=== PATIENT | male | born 1970 | race Caucasian/White ===

== ENCOUNTER → 2017-12-26 12:47 | Outpatient (CLI) | payer OTHER, SELFPAY ==
--- NOTE | 2017-12-26 12:50 | DI.RAD.S_ITS ---
PROCEDURE: XR CERVICAL SPINE 4V OR 5V INDICATIONS: eval TECHNIQUE: 6 views of the cervical spine acquired. COMPARISON: [facility], CT, CT NECK SOFT TISSUE W CON, 09/12/2014, 13:27. FINDINGS: Bones: No fractures or dislocations to the C6 level. There is straightening of cervical curvature. Mild degenerative disc disease is present at C5-C6. Oblique images demonstrate no bony foraminal stenoses. Soft tissues: No prevertebral soft tissue swelling. IMPRESSION: Mild degenerative disc disease and straightening of cervical curvature. Dictated by: Amol Roman M.D. on 12/26/2017 at 15:13 Approved by: Amol Roman M.D. on 12/26/2017 at 15:15
== END ==
PROVIDERS: PCP Family Medicine; Visit Provider Physical Medicine & Rehabilitation
DX: M50.322 Other cervical disc degeneration at C5-C6 level (principal)
CPT/HCPCS: 72050

== ENCOUNTER 2018-01-27 14:48 | Outpatient (CLI) | payer OTHER, SELFPAY ==
[2018-01-27] VITALS (7 sets, daily range): BP systolic 109–139; BP diastolic 78–90; PULSE 55–66; RESP 16–26; TEMP 36.6; O2SAT 95–100
--- NOTE | 2018-01-27 14:49 | DI.RAD.S_ITS ---
PROCEDURE: PAIN C/T INTERLAMINAR INJECT INDICATIONS: RADICULOPATHY FINDINGS: Fluoroscopic spot filming was performed to verify placement of spinal needles at the C6-C7 level(s), as labeled on the films. Appropriate location(s) of the needle tip(s) was confirmed by injection of iodinated contrast. Dictated by: Carlito Beanvidez M.D. on 01/27/2018 at 16:36 Approved by: Carlito Benavidez M.D. on 01/27/2018 at 16:37
--- NOTE | 2018-01-27 15:14 | PM.PROC.1 ---
Procedures Date/Time Date of procedure: 01/27/18 Time of procedure: 15:14 General Procedure description: PREOP DIAGNOSIS 1. CERVICAL STENOSIS, 2. CERVICAL HNP WITH UPPER EXTREMITY RADICULAR FEATURES, POST OP DIAGNOSIS 1. CERVICAL STENOSIS, 2. CERVICAL HNP WITH UPPER EXTREMITY RADICULAR FEATURES, PROCEDURES 1. FLUORSCOPICALLY GUIDED CONTRAST CONTROLLED INTERLAMINAR EPIDURAL STEROID INJECTION - C6/7 TL TRACI PHYSICIAN: DO CHANO Negro referred by Dr. Box for treatment of Cervical HNP with Upper Extremity Paresthesias. FINDINGS Cervical Stenosis due to disc deterioration and nerve root irritation and nerve root irritation DESCRIPTION OF PROCEDURE Fluoroscopically guided, contrast-controlled C6/7 translaminar epidural steroid injection with conscious sedation. Following denial of allergy and review of potential side effects and complications, including, but not necessarily limited to, infection, allergic reaction, local tissue breakdown, temporary as well as permanent nerve injury, stroke, paralysis, and possible , the patient indicated that patient understood and agreed to proceed. An informed consent document was signed by the patient, witnessed by a nurse, and placed in the patient's chart. Additionally, other treatment options including modalities, medications, and physical therapy were reviewed with the patient. After review of previous anaesthesic history and IV conscious sedation the patient was deemed safe to proceed with todays procedure with IV conscious sedation as ASA class II designation. Safety time-out was performed to confirm patient ID, procedure to be performed and site of procedure. IV sedation was accomplished with a combination of 5mg of Versed administered by the RN after DO order, titrated to patient comfort during the course of the procedure while the patient remained responsive to all verbal commands. In the prone position, following sterile prep and drape of the cervical region, the C6/7 translaminar space was identified fluoroscopically. The skin was anesthetized via a 25-gauge 1.5-inch needle with 1% lidocaine solution. At this point, a 25-gauge, 2.5-inch short bevel spinal needle was atraumatically introduced and advanced under fluoroscopic guidance into epidural space at the C6/7 translaminar space. Depth was confirmed on lateral view. Radiological data, including multiple fluoroscopic views of the cervical spine, reveal a spinal needle at the C6/7 translaminar space. Lateral views then show placement of the needle in the epidural space. Subsequent views show contrast material flowing superiorly and inferiorly in the epidural space. DSA fluoroscopy with live contrast injection, once again, confirmed no vascular or intrathecal uptake. At this point, using loss of resistance technique with saline and air, the epidural space was entered. Following negative aspiration, injection of approximately 1.5 cc of Isovue-200 with live fluoroscopy in the AP view confirmed epidural flow in the epidural space without vascular or intrathecal uptake observed. Subsequently, a test dose of 1 cc of 1% lidocaine solution was injected and patient was observed for two minutes without signs or symptoms of complications, including abdominal pain, shortness of breath, bilateral upper or lower extremity weakness, nausea and vomiting, prior to steroid injection. At this point, 3 cc or 30 mg of dexamethasone was then injected without incident. The patient tolerated the procedure well without signs or symptoms of complications prior to being transferred to the recovery area for further monitoring, The patient was then transferred to the recovery area where they were observed for an appropriate period of time after the injection. The patient reported a VAS score of 6 prior to the procedure and a post-procedure VAS of 0. Total Fluoroscopy Time: 37.0 seconds Total Conscious Time: 24min POST OP INSTRUCTIONS The patient was provided a Pain Log to continue to record their response to the target-specific procedure prior to follow-up visit with the referring provider. Additionally, specific post-injection care instructions and a contact number to our office were provided if concerns arise regarding possible complications associated with the procedure are suspected. Estuardo Lubin, Complications: none
[2018-01-27] MEDS: MIDAZOLAM 5 MG/5 ML VIAL IV (15:18)
--- NOTE | 2018-01-27 15:33 | PC.NURSE ---
pt tolerated procedure well. alert and able to get off table with one person stand by assist. Transferred to pre procedure room via wheelchair for resumed care with Amarilis MARQUIS.
--- NOTE | 2018-01-27 15:46 | PC.NURSE ---
accepted care of pt in post proc area in stable condition
[2018-01-27] MEDS: LIDOCAINE 1% 20 ML INJ 5 ML INJ (15:48)
[2018-01-27] MEDS: IOPAMIDOL 15 ML VIAL 3 ML INJ (15:48)
[2018-01-27] MEDS: DEXAMETHASONE 10 MG/ML VIAL 30 MG INJ (15:48)
--- NOTE | 2018-01-28 16:20 | PC.NURSE ---
Follow up call made and message left as pt wasn't available. Instructed to call office with any questions or concerns.
== END 2018-01-27 16:21 | disposition home or self-care (01) ==
PROVIDERS: PCP Family Medicine; Visit Provider Physical Medicine & Rehabilitation
DX: M48.02 Spinal stenosis, cervical region (principal); M50.123 Cervical disc disorder at C6-C7 level with radiculopathy
CPT/HCPCS: 62321; 99152; J1100; J2250

== ENCOUNTER → 2018-01-29 15:11 | Outpatient (CLI) | payer OTHER, SELFPAY ==
--- NOTE | 2018-01-29 15:14 | DI.RAD.S_ITS ---
PROCEDURE: XR LUMBAR SPINE MIN 4V INDICATIONS: left leg pain TECHNIQUE: 5 views of the lumbar spine were acquired. COMPARISON: None. FINDINGS: Bones: No fracture or focal osseous destruction. Diffuse facet arthropathy is present. Moderate narrowing of the L3-L4 disc space. Mild narrowing of the remaining lumbar disc spaces. Dextrocurvature centered at L2. Soft tissues: Overlying bowel gas pattern is normal. No suspicious soft tissue calcifications. Oblique images: No pars defects. IMPRESSION: Dextroscoliosis. Mild to moderate lumbar disc degeneration and facet arthropathy, most pronounced at L3-L4. Dictated by: Carlito Benavidez M.D. on 01/29/2018 at 16:12 Approved by: Carlito Benavidez M.D. on 01/29/2018 at 16:13
--- NOTE | 2018-01-29 15:29 | DI.US.S_ITS ---
PROCEDURE: US PERIPH VENOUS LOW EXTREM LT INDICATIONS: rule out DVT TECHNIQUE: Real-time imaging, as well as color and pulse Doppler interrogation, were performed of the lower extremity deep veins from the inguinal ligament to the popliteal fossa. COMPARISON: None. FINDINGS: The deep veins are normally compressible, and free of intraluminal thrombus. Color and pulse Doppler demonstrate normal phasic intraluminal flow. There is normal augmentation response to distal compression maneuver. IMPRESSION: No visualized deep venous thrombosis. Dictated by: Petra Lay M.D. on 01/29/2018 at 15:56 Approved by: Petra Lay M.D. on 01/29/2018 at 15:56
== END ==
PROVIDERS: PCP Family Medicine; Visit Provider Physical Medicine & Rehabilitation
DX: M51.16 Intervertebral disc disorders with radiculopathy, lumbar region (principal); M47.26 Other spondylosis with radiculopathy, lumbar region; M47.27 Other spondylosis with radiculopathy, lumbosacral region; I82.409 Acute embolism and thrombosis of unspecified deep veins of unspecified lower extremity; M41.86 Other forms of scoliosis, lumbar region; M79.605 Pain in left leg
CPT/HCPCS: 72110; 93971

== ENCOUNTER → 2018-08-11 18:54 | Outpatient (CLI) | payer OTHER, SELFPAY ==
--- NOTE | 2018-08-11 18:56 | DI.MRI.S_ITS ---
PROCEDURE: MR LUMBAR SPINE WO CON INDICATIONS: Right L4 radiculopathy TECHNIQUE: Noncontrast sagittal T1 spin echo and T2 fast echo, sagittal STIR, axial T1 and T2 fast spin echo through the lumbar spine. In cases with scoliosis, additional coronal T2 fast spin echo may be performed. COMPARISON: None. FINDINGS: Image quality: Excellent. Alignment and Curvature: There is normal bony alignment. Bone Marrow: Marrow is of normal overall signal. No acute vertebral body compression fractures. Spinal Cord: Conus medullaris terminates at the L1 level. Visualized cord demonstrates normal signal and size. Paraspinous Soft Tissues: No paravertebral masses. L1-L2: Normal appearance except for slight disc height reduction and desiccation. L2-L3: Normal appearance except for mild degenerative disc height reduction and desiccation and a small posterior broad-based transverse disc bulge. L3-L4: Normal appearance except for mild to moderate degenerative disc height reduction and desiccation and a small posterior transverse disc bulge.. L4-L5: At the posterior midline of the spinal canal there is a rounded high T2 signal sharply the carbonated focus of what appears to be fluid, measuring up to 6 x 7 mm, extra-axial on the sagittal T1 imaging given the surrounding fat dorsal to the thecal sac. This is positioned to suggest a small medial synovial cyst not impinging on adjacent neural structures. There is a asymmetric disc protrusion at the right posterolateral recess and neural foramen, impinging on the course of the right L4 nerve root as it crosses that area and enters the far peripheral right neural foramen. This is the likely cause for reported right L4 radiculopathy. L5-S1: Normal appearance except for minimal degenerative disc height reduction and desiccation and mild bilateral facet osteoarthritis on the left and moderate such degeneration on the right. Asymmetric right greater than left foraminal stenosis is associated.. IMPRESSION: 1. Overall there is relatively mild degenerative disc disease and facet osteoarthritis along the lumbosacral spine. This is most prominent at the L4-5 level where an asymmetric disc protrusion on the right at the posterolateral recess and medial aspect of the right neural foramen results in impingement on the normal course of the right L4 nerve root. This is the likely cause for the reported right L4 nerve root radiculopathy. 2. A small synovial protrusion is incidentally noted at the posterior midline of the L4-L5 extra-axial spinal canal measuring 7 mm in maximal dimension, and not impinging on nerve roots at that site. This does not produce significant spinal stenosis. Dictated by: Stephan Silverman M.D. on 08/12/2018 at 9:19 Approved by: Stephan Silverman M.D. on 08/12/2018 at 9:34
== END ==
PROVIDERS: PCP Family Medicine; Visit Provider Physical Medicine & Rehabilitation
DX: M51.16 Intervertebral disc disorders with radiculopathy, lumbar region (principal); M47.26 Other spondylosis with radiculopathy, lumbar region; M47.27 Other spondylosis with radiculopathy, lumbosacral region
CPT/HCPCS: 72148

== ENCOUNTER 2018-08-18 15:31 | Outpatient (CLI) | payer OTHER, SELFPAY ==
[2018-08-18] VITALS (7 sets, daily range): BP systolic 122–156; BP diastolic 74–99; PULSE 61–67; RESP 16–18; TEMP 36.8; O2SAT 95–100
--- NOTE | 2018-08-18 | DI.RAD.S_ITS ---
PROCEDURE: PAIN L/SI FACET INJ/BLK 1STL INDICATIONS: SPINAL STENOSIS FINDINGS: Fluoroscopic spot filming was performed to verify placement of spinal needles at the right L4-5 level(s), as labeled on the films. Appropriate location(s) of the needle tip(s) was confirmed by injection of iodinated contrast. IMPRESSION: Fluoroscopy guidance was provided for right L4-5 facet joint injection and cyst rupture. Dictated by: Rayray Dobson M.D. on 08/19/2018 at 10:47 Approved by: Rayray Dobson M.D. on 08/19/2018 at 10:50
--- NOTE | 2018-08-18 15:32 | DI.RAD.S_ITS ---
PROCEDURE: PAIN L/S TRANSFORAMINAL INJECT INDICATIONS: Right L4 radiculopathy FINDINGS: Fluoroscopic spot filming was performed to verify placement of spinal needles at the right L4-5 level(s), as labeled on the films. Appropriate location(s) of the needle tip(s) was confirmed by injection of iodinated contrast. IMPRESSION: Fluoroscopy guidance was provided for right L4-5 transforaminal epidural steroid injection. Dictated by: Rayray Dobson M.D. on 08/19/2018 at 10:50 Approved by: Rayray Dobson M.D. on 08/19/2018 at 10:50
[2018-08-18] MEDS: MIDAZOLAM 5 MG/5 ML VIAL IV (16:20)
[2018-08-18] MEDS: fentaNYL 100 MCG/2 ML INJ 50 MCG IV (16:20)
[2018-08-18] MEDS: LIDOCAINE 1% 20 ML INJ 5 ML INJ (16:24)
[2018-08-18] MEDS: BETAMETHASONE 30 MG/5 ML MDV 12 MG INJ (16:24)
[2018-08-18] MEDS: BUPIVACAINE 0.5% (PF) VIAL 2 ML INJ (16:24)
[2018-08-18] MEDS: IOPAMIDOL 15 ML VIAL 3 ML INJ (16:24)
[2018-08-18] MEDS: DEXAMETHASONE 10 MG/ML VIAL INJ (16:25)
--- NOTE | 2018-08-18 16:44 | P.PCN_ITS ---
Procedures Date/Time Date of procedure: 08/18/18 Time of procedure: 16:41 General Procedure description: PREOP DIAGNOSIS 1. FACET ARTHROPATHY, 2. AXIAL LBP, 3. MULTILEVEL DDD, POST OP DIAGNOSIS 1. FACET ARTHROPATHY, 2. AXIAL LBP, 3. MULTILEVEL DDD, PROCEDURES 1. FLUORSCOPICALLY GUIDED CONTRAST CONTROLLED FACET JOINT INJECTIONS WITH CYST RUPTURE RIGHT L4/5 SURGEON: Estuardo Lubin, DO MADDEN Luke is referred by for treatment of Axial LBP FINDINGS Multilevel Facet Arthropathy with Clinically significant axial LBP DESCRIPTION OF PROCEDURE Fluoroscopically guided, contrast-controlled right L4/5, L5/S1 facet joint injections. Following review of allergy and review of potential side effects and complications, including, but not necessarily limited to, infection, allergic reaction, local tissue breakdown, stroke, temporary or permanent nerve injury, paralysis, and possible , the patient indicated that the patient understood and agreed to proceed. An informed consent document was signed by the patient, witnessed by a nurse, and placed in the patient's chart. Additionally, other treatment options including medications, modalities, and physical therapy were reviewed with the patient. After review of previous anaesthesic history and IV conscious sedation the patient was deemed safe to proceed with todays procedure with IV conscious sedation as ASA class II designation. Safety time-out was performed to confirm patient ID, procedure to be performed and site of procedure. IV sedation was accomplished with a combination of 4mg of Versed and 50mcg of Fenanylwas administered by the RN after DO order, titrated to patient comfort during the course of the procedure while the patient remained responsive to all verbal commands. In the prone position, following sterile prep and drape of the lumbar region, the posterior aspect of the right L4/5 facet joint were identified fluoroscopically. The skin was anesthetized via a 25-gauge 1.5-inch needle with 1% lidocaine solution into the corresponding facet joints. At this point, a 22- gauge 3.5-inch spinal needle was atraumatically introduced and advanced under fluoroscopic guidance into the corresponding facet joint. Following negative as piration, injections of approximately 0.2-cc of Isovue 200 confirmed interarticular placement without vascular uptake and cyst outlined. Thus the facet cyst was aspirated and then ruptured. Radiological data, including multiple fluoroscopic views of the lumbosacral spine, reveal a spinal needle at the right L4/5 facet joints. Subsequent views show flow of contrast material both superiorly and inferiorly within the joint space without vascular or intrathecal uptake. At this point, a total of 0.5 cc including a mixture of 0.25cc Marcaine and 0.25cc betamethasone was injected without complication into each of the corresponding facet joints. The procedure tolerated the procedure well without signs or symptoms of complications prior to transfer to the recovery area continued monitoring without incident. The patient was then transferred to the recovery area where they were observed for an appropriate period of time after the injection. The patient reported a VAS score of 7 prior to the procedure and a post-procedure VAS of 0. Total Fluoroscopy Time: 12.7 seconds Total Conscious Sedation Time: 24min POST OP INSTRUCTIONS The patient was provided a Pain Log to continue to record their response to the target-specific procedure prior to follow-up visit with their referring physician. Additionally, specific post-injection care instructions and a contact number to our office were provided if concerns arise regarding possible complications associated with the procedure are suspected. Estuardo Lubin DO Complications: none
--- NOTE | 2018-08-18 16:46 | P.PCN_ITS ---
Procedures Date/Time Date of procedure: 08/18/18 Time of procedure: 16:44 General Procedure description: PREOP DIAGNOSIS 1. FORMAINAL STENOSIS WITH LE SYMPTOMS POST OP DIAGNOSIS 1. FORMAINAL STENOSIS WITH LE SYMPTOMS PROCEDURES 1. FLUOROSCOPICALLY GUIDED CONTRAST CONTROLLED TRANSFORAMINAL EPIDURAL STEROID INJECTION - RIGHT L4/5 TFESI PHYSICIAN: Estuardo Lubin DO INDICATIONS: Luke is referred by Dr. Box for treatment of HNP with Right LE Radiculopathy FINDINGS Foraminal Nerve Root Compression secondary to disc disease and facet hypertrophy DESCRIPTION OF PROCEDURE: Following review of allergy and review of potential side effects and complications, including, but not necessarily limited to, infection, allergic reaction, local tissue breakdown, stroke, temporary or permanent nerve injury, paralysis, and possible , the patient indicated that the patient understood and agreed to proceed. An informed consent document was signed by the patient, witnessed by a nurse, and placed in the patient's chart. Additionally, other treatment options including medications, modalities, and physical therapy were reviewed with the patient. After review of previous anaesthesic history and IV conscious sedation the patient was deemed safe to proceed with todays procedure with IV conscious sedation as ASA class II designation. Safety time-out was performed to confirm patient ID, procedure to be performed and site of procedure. IV sedation was accomplished with a combination of 4mg of Versed and 50mcg of Fentanyl was administered by the RN after DO order, titrated to patient comfort during the course of the procedure while the patient remained responsive to all verbal commands In the prone position following sterile prep and drape of the lumbar region, the Right L4/5 posterior neuroforamen was identified fluoroscopically. The skin was anesthetized via a 25-gauge 1.5-inch needle with 1% lidocaine solution. At this point, a 25-gauge 3.5-inch spinal needle was atraumatically introduced and advanced under fluoroscopic guidance through the posterior Right L4/5 neuroforamen to approximately the anterior aspect of the canal. Depth was confirmed on lateral view. Following negative aspiration, injection of approximately 1.5 cc of Isovue 200 under live fluoroscopy in the AP view confirmed excellent flow along the nerve root, into the epidural space without vascular or intrathecal uptake observed Radiological data, including multiple fluoroscopic views of the lumbosacral spine, reveal a spinal needle at the right L4/5 posterior neuroforamen. Subsequent views show flow of contrast material flowing superiorly and inferiorly along the nerve root confirming epidural flow. Subsequently, a test dose of 1.5 cc of 1% lidocaine solution was administered and patient was observed for two minutes for signs or symptoms of complications, including abdominal pain, shortness of breath, bilateral upper or lower extremity weakness, nausea and vomiting, prior to steroid injection. At this point, a total of 3cc or 10mg of dexamethasone and 12mg of betamethasone was injected without incident. The procedure tolerated the procedure well without signs or symptoms of complications prior to transfer to the recovery area continued monitoring without incident.The patient was then transferred to the recovery area where they were observed for an appropriate time after the injection. The patient reported a VAS score of 7 prior to the procedure and a post- procedure VAS of 0. Total Fluoroscopy Time: 20.9 seconds Total Conscious Sedation Time: 24min POST OP INSTRUCTIONS The patient was provided a Pain Log to continue to record their response to the target-specific procedure prior to follow-up visit with their referring physician. Additionally, specific post-injection care instructions and a contact number to our office were provided if concerns arise regarding possible complications associated with the procedure are suspected. Estuardo Lubin, Complications: none
--- NOTE | 2018-08-18 16:48 | PC.NURSE ---
Pt returned from procedure awake and alert via wheelchair. Able to transfer with standby assist. Resumed monitoring from Amarilis MARQUIS.
== END 2018-08-18 17:16 ==
LOC: RAD 15:31
PROVIDERS: PCP Family Medicine; Visit Provider Physical Medicine & Rehabilitation
DX: M47.816 Spondylosis without myelopathy or radiculopathy, lumbar region (principal); M54.5 Low back pain; M51.36 Other intervertebral disc degeneration, lumbar region; M48.061 Spinal stenosis, lumbar region without neurogenic claudication; M71.38 Other bursal cyst, other site
CPT/HCPCS: 64483; 64493; 99152; J0702; J1100; J2250; J3010

== ENCOUNTER → 2019-04-23 14:04 | Outpatient (CLI) | payer OTHER, SELFPAY ==
[2019-04-23 15:13] LABS: Influenza A - CEPHEID Flu A NEGATIVE (NEGATIVE); Influenza B - CEPHEID Flu B NEGATIVE (NEGATIVE)
[2019-04-30 15:13] LABS: COVID19 Sendout Not Detected (Not Detected)
== END ==
PROVIDERS: PCP Family Medicine; Visit Provider Nurse Practitioner
DX: R68.89 Other general symptoms and signs (principal); R05 Cough; R06.02 Shortness of breath; J02.9 Acute pharyngitis, unspecified
CPT/HCPCS: 87070; 87502; 87635